=== PATIENT | male | born 1970 | race Caucasian/White ===

== ENCOUNTER 2021-12-19 09:58 | Outpatient (CLI) | payer OTHER | END 2021-12-19 10:07 | disposition home or self-care (01) | LOC: RAD 09:58 | PROVIDERS: ATTEND Physical Medicine & Rehabilitation Sports Medicine | DX: M16.11 Unilateral primary osteoarthritis, right hip (principal) ==

== ENCOUNTER 2023-02-09 07:43 | Outpatient (CLI) | payer OTHER | END 2023-02-09 07:53 | disposition home or self-care (01) | LOC: LAB 07:43 | PROVIDERS: ATTEND General Practice | DX: D64.9 Anemia, unspecified (principal); E03.9 Hypothyroidism, unspecified; E78.5 Hyperlipidemia, unspecified; N39.0 Urinary tract infection, site not specified; R73.03 Prediabetes; N40.0 Benign prostatic hyperplasia without lower urinary tract symptoms; M81.0 Age-related osteoporosis without current pathological fracture; E55.9 Vitamin D deficiency, unspecified ==

== ENCOUNTER → 2023-05-09 06:46 | Outpatient (CLI) | payer OTHER | END | disposition home or self-care (01) | LOC: LAB 06:46 | PROVIDERS: ATTEND General Practice | DX: Z20.6 Contact with and (suspected) exposure to human immunodeficiency virus [HIV] (principal); Z20.5 Contact with and (suspected) exposure to viral hepatitis ==

== ENCOUNTER → 2023-08-09 06:17 | Outpatient (CLI) | payer OTHER ==
[2023-08-09 08:09] LABS: ALBUMIN 3.6 gm/dL (3.4-5.0); BILIRUBIN TOTAL 0.5 mg/dL (0.3-1.2); CREATININE SERUM 0.84 mg/dL (0.70-1.30); GFR 95.58; GLOBULINA 3.1 G/DL (2.4-3.5); POTASSIUM 4.49 mEq/L (3.5-5.1); TOTAL PROTEIN 6.7 gm/dL (6.4-8.2)
[2023-08-10 09:08] LABS: hav igm Positive (Negative); hcv Non Reactive (Non Reactive); hep b c Negative (Negative)
== END | disposition home or self-care (01) ==
LOC: LAB 06:17
DX: Z20.6 Contact with and (suspected) exposure to human immunodeficiency virus [HIV] (principal); Z20.5 Contact with and (suspected) exposure to viral hepatitis; Z11.3 Encounter for screening for infections with a predominantly sexual mode of transmission

== ENCOUNTER 2023-11-04 09:31 | Outpatient (CLI) | payer OTHER ==
[2023-11-04 11:12] LABS: PH,URINE 5.5 (5.0-8.0); URINE APPEARANCE Clear; URINE BILIRRUBIN Negative (NEGATIVE); URINE BLOOD Trace; URINE COLOR Yellow; URINE GLUCOSE Negative (NEGATIVE); URINE LEUKOCYTE Negative; URINE NITRATE Negative; URINE PROTEIN Negative (NEGATIVE); URINE UROBILINOGEN 0.2 E.U./dl
[2023-11-04 11:20] LABS: URINE EPITHELIAL CELLS 3.7 uL (0.0-38.8); URINE RBC 59.3 uL (0.0-20.8); URINE WBC 4.6 uL (0.0-23.2)
[2023-11-04 11:29] LABS: ALBUMIN 3.4 gm/dL (3.4-5.0); BILIRUBIN TOTAL 0.66 mg/dL (0.3-1.2); CREATININE SERUM 0.86 mg/dL (0.70-1.30); GFR 93.02; POTASSIUM 4.79 mEq/L (3.5-5.1); TOTAL PROTEIN 6.4 gm/dL (6.4-8.2)
[2023-11-06 08:10] LABS: hav igm Positive (Negative); hcv Non Reactive (Non Reactive); hep b c Negative (Negative)
== END 2023-11-04 09:32 | disposition home or self-care (01) ==
LOC: LAB 09:31
PROVIDERS: ATTEND General Practice
DX: Z20.6 Contact with and (suspected) exposure to human immunodeficiency virus [HIV] (principal); Z20.5 Contact with and (suspected) exposure to viral hepatitis

== ENCOUNTER → 2024-01-30 07:11 | Outpatient (CLI) | payer OTHER ==
[2024-01-30 08:17] LABS: ALBUMIN 3.9 gm/dL (3.4-5.0); BILIRUBIN TOTAL 1.17 mg/dL (0.3-1.2); CALCIUM 9.5 mg/dL (8.5-10.1); CREATININE SERUM 0.85 mg/dL (0.70-1.30); GFR 94.29; GLOBULINA 3.4 G/DL (2.4-3.5); POTASSIUM 4.5 mEq/L (3.5-5.1); TOTAL PROTEIN 7.3 gm/dL (6.4-8.2)
[2024-01-30 08:31] LABS: PH,URINE 7.5 (5.0-8.0); URINE APPEARANCE Clear; URINE BILIRRUBIN Negative (NEGATIVE); URINE BLOOD Negative; URINE COLOR Dark Yellow; URINE GLUCOSE Negative (NEGATIVE); URINE LEUKOCYTE Negative; URINE NITRATE Negative; URINE PROTEIN Negative (NEGATIVE); URINE UROBILINOGEN 0.2 E.U./dl
[2024-01-30 08:35] LABS: URINE BACTERIA 47.8 uL (0.0-1933); URINE EPITHELIAL CELLS 2.4 uL (0.0-38.8); URINE RBC 25.4 uL (0.0-20.8); URINE WBC 23.3 uL (0.0-23.2)
[2024-01-31 11:08] LABS: hav igm Positive (Negative); hcv Non Reactive (Non Reactive); hep b c Negative (Negative)
[2024-02-02 09:10] LABS: chla t Negative (Negative); neiss Negative (Negative)
== END | disposition home or self-care (01) ==
LOC: LAB 07:11
PROVIDERS: ATTEND General Practice
DX: Z20.6 Contact with and (suspected) exposure to human immunodeficiency virus [HIV] (principal); Z20.5 Contact with and (suspected) exposure to viral hepatitis; Z11.3 Encounter for screening for infections with a predominantly sexual mode of transmission

== ENCOUNTER 2024-07-24 07:18 | Outpatient (CLI) | payer OTHER ==
[2024-07-24 07:52] LABS: URINE APPEARANCE Cloudy; URINE BILIRRUBIN Negative (NEGATIVE); URINE BLOOD Negative; URINE COLOR Yellow; URINE GLUCOSE Negative (NEGATIVE); URINE KETONE Negative (NEGATIVE); URINE LEUKOCYTE Trace; URINE NITRATE Negative; URINE PROTEIN Negative (NEGATIVE); URINE UROBILINOGEN 0.2 E.U./dl
[2024-07-24 07:56] LABS: URINE RBC 11.9 uL (0.0-20.8); URINE WBC 33.1 uL (0.0-23.2)
[2024-07-24 08:37] LABS: URINE EPITHELIAL CELLS 0.9 uL (0.0-38.8)
[2024-07-24 09:04] LABS: ALBUMIN 3.7 gm/dL (3.4-5.0); BILIRUBIN TOTAL 0.69 mg/dL (0.3-1.2); CALCIUM 9.1 mg/dL (8.5-10.1); CREATININE SERUM 0.77 mg/dL (0.70-1.30); GFR 105.28; GLOBULINA 3.1 G/DL (2.4-3.5); POTASSIUM 4.69 mEq/L (3.5-5.1); TOTAL PROTEIN 6.8 gm/dL (6.4-8.2)
[2024-07-25 07:10] LABS: hav igm Negative (Negative); hcv Non Reactive (Non Reactive); hep b c Negative (Negative); hep b s ag Negative (Negative)
[2024-07-26 09:09] LABS: chla t Negative (Negative); neiss Negative (Negative)
== END 2024-07-24 07:22 | disposition home or self-care (01) ==
LOC: LAB 07:18
PROVIDERS: ATTEND General Practice
DX: Z20.6 Contact with and (suspected) exposure to human immunodeficiency virus [HIV] (principal); Z20.5 Contact with and (suspected) exposure to viral hepatitis; Z11.3 Encounter for screening for infections with a predominantly sexual mode of transmission

== ENCOUNTER 2024-08-01 09:22 | Outpatient (CLI) | payer OTHER ==
[2024-08-01 10:07] LABS: HEMATOCRIT 46.8 % (39.0-48.0); MEAN CELL VOLUME 92.9 fL (80.0-100.00); MEAN CORPUSCULAR HEMOGLOBIN 31.8 pg (27.00-32.0); MEAN CORPUSCULAR HGB CONC 34.2 g/dl (32.0-36.0); PLATELET COUNT 255 K/uL (150-450); RED BLOOD COUNT 5.04 M/uL (4.00-6.00); RED CELL DISTRIBUTION WIDTH 13.4 % (11.5-14.5)
[2024-08-01 10:13] LABS: PH,URINE 7.5 (5.0-8.0); URINE APPEARANCE Cloudy; URINE BILIRRUBIN Negative (NEGATIVE); URINE BLOOD Negative; URINE COLOR Yellow; URINE GLUCOSE Negative (NEGATIVE); URINE LEUKOCYTE Negative; URINE NITRATE Negative; URINE PROTEIN Negative (NEGATIVE)
[2024-08-01 10:18] LABS: URINE BACTERIA 11.3 uL (0.0-1933); URINE RBC 21.6 uL (0.0-20.8); URINE WBC 6.7 uL (0.0-23.2)
[2024-08-01 10:28] LABS: URINE EPITHELIAL CELLS 0.9 uL (0.0-38.8); URINE KETONE 40 (NEGATIVE)
[2024-08-01 10:58] LABS: ALBUMIN 3.9 gm/dL (3.4-5.0); BILIRUBIN TOTAL 1.18 mg/dL (0.3-1.2); CALCIUM 9.2 mg/dL (8.5-10.1); CHOL HDL RATIO 4.4 (0-5.0); CREATININE SERUM 0.84 mg/dL (0.70-1.30); GFR 95.22; GLOBULINA 3.4 G/DL (2.4-3.5); POTASSIUM 4.58 mEq/L (3.5-5.1); PROSTATIC SPECIFIC ANTIGEN 1.55 NG/ML (0.010-4.00); TOTAL PROTEIN 7.3 gm/dL (6.4-8.2); TSH 1.55 uIU/mL (0.358-3.74)
[2024-08-03 11:40] LABS: VITAMIN D3 25 HYDROXY 43.58 ng/ml (30-120)
== END 2024-08-01 09:31 | disposition home or self-care (01) ==
LOC: LAB 09:22
DX: E11.9 Type 2 diabetes mellitus without complications (principal); E03.9 Hypothyroidism, unspecified; R03.0 Elevated blood-pressure reading, without diagnosis of hypertension; R19.5 Other fecal abnormalities; D51.3 Other dietary vitamin B12 deficiency anemia; E78.2 Mixed hyperlipidemia; Z13.9 Encounter for screening, unspecified; E55.9 Vitamin D deficiency, unspecified; R30.0 Dysuria

== ENCOUNTER 2024-08-03 07:32 | Outpatient (CLI) | payer OTHER ==
[2024-08-03 14:14] LABS: ob NEGATIVE (NEGATIVE)
== END 2024-08-03 07:37 | disposition home or self-care (01) ==
LOC: LAB 07:32
DX: E11.9 Type 2 diabetes mellitus without complications (principal); E03.9 Hypothyroidism, unspecified; R03.0 Elevated blood-pressure reading, without diagnosis of hypertension; R19.5 Other fecal abnormalities; D51.3 Other dietary vitamin B12 deficiency anemia; E78.2 Mixed hyperlipidemia

== ENCOUNTER → 2024-12-09 07:38 | Outpatient (CLI) | payer OTHER ==
[2024-12-09 09:07] LABS: PH,URINE 5.5 (5.0-8.0); URINE APPEARANCE Clear; URINE BILIRRUBIN Negative (NEGATIVE); URINE BLOOD Small; URINE COLOR Yellow; URINE GLUCOSE Negative (NEGATIVE); URINE LEUKOCYTE Small; URINE NITRATE Positive; URINE PROTEIN Trace (NEGATIVE)
[2024-12-09 09:16] LABS: URINE CAST 1.62 uL (0.0-1.40); URINE EPITHELIAL CELLS 7.9 uL (0.0-38.8); URINE RBC 86.7 uL (0.0-20.8); URINE WBC 491.4 uL (0.0-23.2)
[2024-12-09 09:24] LABS: URINE BACTERIA > 9821.5 uL (0.0-1933); URINE KETONE 40 (NEGATIVE)
[2024-12-09 09:46] LABS: CALCIUM 9.6 mg/dL (8.5-10.1); CREATININE SERUM 0.79 mg/dL (0.70-1.30); GFR 102.21; POTASSIUM 4.23 mEq/L (3.5-5.1)
[2024-12-09 09:52] LABS: PROSTATIC SPECIFIC ANTIGEN 5.66 NG/ML (0.010-4.00)
== END | disposition home or self-care (01) ==
LOC: LAB 07:38
DX: R31.0 Gross hematuria (principal); N39.0 Urinary tract infection, site not specified

== ENCOUNTER 2024-12-09 08:09 | Outpatient (CLI) | payer OTHER | END 2024-12-09 08:28 | disposition home or self-care (01) | LOC: TOM 08:09 | DX: R31.0 Gross hematuria (principal); N39.0 Urinary tract infection, site not specified ==

== ENCOUNTER 2025-02-10 07:08 | Outpatient (CLI) | payer OTHER ==
[2025-02-10 07:57] LABS: PH,URINE 7.5 (5.0-8.0); URINE BILIRRUBIN Negative (NEGATIVE); URINE BLOOD Negative; URINE COLOR Yellow; URINE GLUCOSE Negative (NEGATIVE); URINE KETONE Trace (NEGATIVE); URINE LEUKOCYTE Small; URINE NITRATE Positive; URINE PROTEIN Negative (NEGATIVE)
[2025-02-10 08:01] LABS: URINE RBC 22.6 uL (0.0-20.8); URINE WBC 98.3 uL (0.0-23.2)
[2025-02-10 08:24] LABS: ALBUMIN 3.8 gm/dL (3.4-5.0); BILIRUBIN TOTAL 0.95 mg/dL (0.3-1.2); CALCIUM 9.7 mg/dL (8.5-10.1); CREATININE SERUM 0.75 mg/dL (0.70-1.30); GFR 108.53; GLOBULINA 3.1 G/DL (2.4-3.5); POTASSIUM 4.73 mEq/L (3.5-5.1); PROSTATIC SPECIFIC ANTIGEN 3.32 NG/ML (0.010-4.00); TOTAL PROTEIN 6.9 gm/dL (6.4-8.2)
[2025-02-10 08:57] LABS: URINE APPEARANCE CLEAR; URINE BACTERIA > 9821.5 uL (0.0-1933); URINE CAST 0.29 uL (0.0-1.40); URINE EPITHELIAL CELLS 0.9 uL (0.0-38.8)
[2025-02-11 07:09] LABS: hav igm Negative (Negative); hcv Non Reactive (Non Reactive); hep b c Negative (Negative); hep b s ag Negative (Negative)
[2025-02-11 13:06] LABS: chla t Negative (Negative); neiss Negative (Negative)
== END 2025-02-10 07:12 | disposition home or self-care (01) ==
LOC: LAB 07:08
PROVIDERS: ATTEND Urology
DX: R31.0 Gross hematuria (principal); N47.7 Other inflammatory diseases of prepuce; N39.0 Urinary tract infection, site not specified; Z20.6 Contact with and (suspected) exposure to human immunodeficiency virus [HIV]; Z20.5 Contact with and (suspected) exposure to viral hepatitis; Z11.3 Encounter for screening for infections with a predominantly sexual mode of transmission

== ENCOUNTER 2025-04-22 07:01 | Outpatient (CLI) | payer OTHER ==
[2025-04-22 08:06] LABS: URINE APPEARANCE Turbid; URINE BILIRRUBIN Negative (NEGATIVE); URINE BLOOD Negative; URINE COLOR Yellow; URINE GLUCOSE Negative (NEGATIVE); URINE LEUKOCYTE Negative; URINE NITRATE Negative; URINE PROTEIN Negative (NEGATIVE); URINE UROBILINOGEN 0.2 E.U./dl
[2025-04-22 08:08] LABS: URINE BACTERIA 12.2 uL (0.0-1933); URINE RBC 16.2 uL (0.0-20.8); URINE WBC 8.8 uL (0.0-23.2)
[2025-04-22 08:49] LABS: URINE CAST 0.14 uL (0.0-1.40); URINE EPITHELIAL CELLS 0.6 uL (0.0-38.8); URINE KETONE 40 (NEGATIVE)
== END 2025-04-22 07:02 | disposition home or self-care (01) ==
LOC: LAB 07:01
PROVIDERS: ATTEND Urology
DX: R31.0 Gross hematuria (principal); N47.7 Other inflammatory diseases of prepuce; N40.0 Benign prostatic hyperplasia without lower urinary tract symptoms; N48.89 Other specified disorders of penis; N20.0 Calculus of kidney; N39.0 Urinary tract infection, site not specified

== ENCOUNTER 2025-05-20 07:36 | Outpatient (CLI) | payer OTHER ==
[2025-05-20 08:30] LABS: URINE APPEARANCE Clear; URINE BILIRRUBIN Negative (NEGATIVE); URINE BLOOD Negative; URINE COLOR Yellow; URINE GLUCOSE Negative (NEGATIVE); URINE KETONE Negative (NEGATIVE); URINE LEUKOCYTE Trace; URINE NITRATE Negative; URINE PROTEIN Negative (NEGATIVE); URINE UROBILINOGEN 1.0 E.U./dl
[2025-05-20 08:31] LABS: URINE BACTERIA 14.3 uL (0.0-1933); URINE EPITHELIAL CELLS 1.6 uL (0.0-38.8); URINE RBC 15.6 uL (0.0-20.8); URINE WBC 4.0 uL (0.0-23.2)
[2025-05-20 08:39] LABS: BASO % 0.8 % (0.1-1.2); EOS # 0.23 (0.04-0.54); EOS % 3.5 % (0.7-7.0); LYMPH # 2.21 (1.18-3.74); LYMPH % 33.3 % (19.3-53.1); MEAN PLATELET VOLUME 9.60 fl (9.4-12.4); MONO # 0.67 (0.24-0.82); MONO % 10.1 % (4.7-12.5); NEUT # 3.44 (1.56-6.13); NEUT % 51.7 % (34.0-71.1); RED CELL DISTRIBUTION WIDTH 13.8 % (11.6-14.4)
[2025-05-20 09:05] LABS: ALT/SGPT 86.0 U/L (12-78); AST/SGOT 136.0 U/L (15-37); BILIRUBIN TOTAL 0.87 mg/dL (0.3-1.2); BUN CREA RATIO 12.0 (7.0-25.0); CHOL HDL RATIO 3.6 (0-5.0); CREATININE SERUM 0.84 mg/dL (0.70-1.30); GFR 94.87; GLOBULINA 3.1 G/DL (2.4-3.5); GLUCOSE FASTING 88.0 mg/dL (65-100); HDL 53.0 mg/dl (40-60); LDL 123.0 mg/dl (0-130); OSMOLALITY SERUM 283.0 MOSM/KG (275-295); VLDL 16.0 (0-39)
[2025-05-20 09:09] LABS: URINE CAST 0.29 uL (0.0-1.40)
[2025-05-21 19:11] LABS: chla t Negative (Negative); neiss Negative (Negative)
== END 2025-05-20 07:41 | disposition home or self-care (01) ==
LOC: LAB 07:36
DX: Z29.81 Encounter for HIV pre-exposure prophylaxis (principal)

== ENCOUNTER → 2025-07-03 07:15 | Outpatient (CLI) | payer OTHER ==
[2025-07-03 09:11] LABS: BASO % 0.5 % (0.1-1.2); EOS # 0.15 (0.04-0.54); EOS % 2.0 % (0.7-7.0); LYMPH # 1.95 (1.18-3.74); LYMPH % 25.5 % (19.3-53.1); MEAN PLATELET VOLUME 10.60 fl (9.4-12.4); MONO # 0.66 (0.24-0.82); MONO % 8.6 % (4.7-12.5); NEUT # 4.82 (1.56-6.13); NEUT % 63.1 % (34.0-71.1); RED CELL DISTRIBUTION WIDTH 13.6 % (11.6-14.4)
[2025-07-03 09:28] LABS: ob POSITIVE (NEGATIVE)
[2025-07-03 09:46] LABS: BUN CREA RATIO 19.0 (7.0-25.0); CHOL HDL RATIO 3.9 (0-5.0); CREATININE SERUM 0.68 mg/dL (0.70-1.30); GFR 121.07; GLUCOSE FASTING 75.0 mg/dL (65-100); HDL 43.0 mg/dl (40-60); LDL 114.0 mg/dl (0-130); OSMOLALITY SERUM 284.0 MOSM/KG (275-295); PROSTATIC SPECIFIC ANTIGEN 1.06 NG/ML (0.010-4.00); TSH 1.22 uIU/mL (0.358-3.74); VLDL 12.0 (0-39)
== END | disposition home or self-care (01) ==
LOC: LAB 07:15
PROVIDERS: ATTEND Internal Medicine
DX: I11.9 Hypertensive heart disease without heart failure (principal); K92.1 Melena; K76.9 Liver disease, unspecified; E78.9 Disorder of lipoprotein metabolism, unspecified; E11.69 Type 2 diabetes mellitus with other specified complication; N95.9 Unspecified menopausal and perimenopausal disorder; E55.9 Vitamin D deficiency, unspecified; E03.9 Hypothyroidism, unspecified; N40.0 Benign prostatic hyperplasia without lower urinary tract symptoms; E29.1 Testicular hypofunction

== ENCOUNTER → 2025-08-21 07:09 | Outpatient (CLI) | payer OTHER ==
[2025-08-21 08:24] LABS: BASO % 0.8 % (0.1-1.2); EOS # 0.13 (0.04-0.54); EOS % 2.5 % (0.7-7.0); LYMPH # 2.31 (1.18-3.74); LYMPH % 43.8 % (19.3-53.1); MEAN PLATELET VOLUME 9.70 fl (9.4-12.4); MONO # 0.56 (0.24-0.82); MONO % 10.6 % (4.7-12.5); NEUT # 2.23 (1.56-6.13); NEUT % 42.1 % (34.0-71.1); RED CELL DISTRIBUTION WIDTH 14.1 % (11.6-14.4)
[2025-08-21 08:30] LABS: URINE APPEARANCE Clear; URINE BILIRRUBIN Negative (NEGATIVE); URINE BLOOD Negative; URINE COLOR Yellow; URINE GLUCOSE Negative (NEGATIVE); URINE LEUKOCYTE Negative; URINE NITRATE Negative; URINE PROTEIN Negative (NEGATIVE); URINE UROBILINOGEN 1.0 E.U./dl
[2025-08-21 08:31] LABS: URINE BACTERIA 5.9 uL (0.0-1933); URINE RBC 18.4 uL (0.0-20.8); URINE WBC 2.1 uL (0.0-23.2)
[2025-08-21 08:50] LABS: URINE CAST 0.00 uL (0.0-1.40); URINE EPITHELIAL CELLS 0.4 uL (0.0-38.8); URINE KETONE 40 (NEGATIVE)
[2025-08-21 08:51] LABS: URINE CRYSTALS MODERATE /HPF
[2025-08-21 09:11] LABS: ALT/SGPT 33.0 U/L (12-78); AST/SGOT 28.0 U/L (15-37); BILIRUBIN TOTAL 0.52 mg/dL (0.3-1.2); BUN CREA RATIO 19.0 (7.0-25.0); CHOL HDL RATIO 4.2 (0-5.0); CREATININE SERUM 0.72 mg/dL (0.70-1.30); GFR 113.34; GLOBULINA 2.7 G/DL (2.4-3.5); GLUCOSE FASTING 77.0 mg/dL (65-100); HDL 53.0 mg/dl (40-60); LDL 157.0 mg/dl (0-130); OSMOLALITY SERUM 284.0 MOSM/KG (275-295); VLDL 14.0 (0-39)
[2025-08-24 05:06] LABS: hav igm Negative (Negative); hep b c Negative (Negative); hep b s ag Negative (Negative)
== END | disposition home or self-care (01) ==
LOC: LAB 07:09
DX: Z29.81 Encounter for HIV pre-exposure prophylaxis (principal); Z20.6 Contact with and (suspected) exposure to human immunodeficiency virus [HIV]; Z20.5 Contact with and (suspected) exposure to viral hepatitis; Z11.3 Encounter for screening for infections with a predominantly sexual mode of transmission